=== PATIENT | female | born 1950 | race Caucasian/White ===

== ENCOUNTER 2017-05-18 14:54 | Emergency (ER) | payer OTHER ==
[~2017-05-18] VITALS: Ht 152.4 cm; Wt 80.7 kg
[2017-05-18] MEDS ORDERED: ASPIRIN81 M2 PO (15:57)
[2017-05-18] MEDS ORDERED: LIPITOR80 MG PO (15:58)
[2017-05-18] MEDS ORDERED: LIORESAL 10 MG10 MG PO (15:58)
[2017-05-18] MEDS ORDERED: LASIX 40 MG TAB40 M2 PO (15:59)
[2017-05-18] MEDS ORDERED: SYMBICORT160 MCG/4. INH (15:59)
[2017-05-18] MEDS ORDERED: DICLOFENAC SODI75 MG PO (15:59)
[2017-05-18] MEDS ORDERED: AMARYL4 MG PO (16:00)
[2017-05-18] MEDS ORDERED: SYNTHROID125 MCG PO (16:00)
[2017-05-18] MEDS ORDERED: NEURONTIN600 MG PO (16:00)
[2017-05-18] MEDS ORDERED: METFORMIN HCL500 MG PO (16:01)
[2017-05-18] MEDS ORDERED: LISINOPRIL20 MG PO (16:01)
[2017-05-18] MEDS ORDERED: LOPRESSOR25 PO (16:01)
[2017-05-18 16:48] LABS: URINE BILIRUBIN NEGATIVE (Negative); URINE BLOOD NEGATIVE (Negative); URINE COLOR YELLOW; URINE GLUCOSE-RANDOM* NEGATIVE (Negative); URINE KETONES NEGATIVE (Negative); URINE PROTEIN (DIPSTICK) NEGATIVE (Negative); URINE UROBILINOGEN 0.2 E.U./dl (0.2-1.0)
[2017-05-18 16:49] LABS: URINE LEUKOCYTES-REFLEX 1+ (Negative)
[2017-05-18 16:51] LABS: CASTS None Seen /LPF (None Seen); CRYSTALS None Seen /LPF (None Seen); SQUAMOUS 0-3 Few /LPF (0-3); URINE RBC None Seen /HPF (0-2); URINE WBC-REFLEX 0-5 Rare /HPF (0-5)
[2017-05-18 16:52] LABS: YEAST-REFLEX Present (None Seen)
[2017-05-18 17:11] LABS: ABSOLUTE NEUTROPHILS 6.8 thou/uL (1.4-8.2); HEMATOCRIT 42.3 % (37.0-47.0); HEMOGLOBIN 13.9 gm/dL (12.0-15.0); LYMPHOCYTES 24.5 % (24.0-44.0); MCH 33.6 pg (26.0-34.0); MCHC 32.8 g/dL (28.0-37.0); MCV 102.5 fL (80.0-100.0); MONOCYTES 11.8 % (1.0-8.0); PLATELET COUNT 186 thou/uL (150-400); POLYS 59.7 % (36.0-66.0); RBC 4.13 mil/uL (4.20-5.00); RDW 13.8 % (10.5-14.5); WBC 11.4 thou/uL (4.0-11.0)
[2017-05-18 17:12] LABS: MANUAL DIFF NO
[2017-05-18 17:20] LABS: CALCIUM 8.9 mg/dL (8.5-10.1); CREATININE 0.9 mg/dL (0.6-1.0); POTASSIUM 4.1 mmol/L (3.5-5.1)
[2017-05-18] MEDS ORDERED: KEFLEX500 M1 PO (18:33)
[2017-05-18] MEDS ORDERED: NORCO 5-325 TA1 EACH PO (18:33)
[2017-05-18 19:45] VITALS: BP 123/45
== END 2017-05-18 19:46 | disposition home or self-care (01) ==
LOC: ER 14:54
PROVIDERS: Emergency Medicine
DX: N12 Tubulo-interstitial nephritis, not specified as acute or chronic (principal); N28.89 Other specified disorders of kidney and ureter; F17.210 Nicotine dependence, cigarettes, uncomplicated; Z88.8 Allergy status to other drugs, medicaments and biological substances; Z90.49 Acquired absence of other specified parts of digestive tract; Z90.89 Acquired absence of other organs

== ENCOUNTER 2017-06-29 20:44 | Inpatient (IN) | payer OTHER ==
[~2017-06-29] VITALS: Ht 152.4 cm; Wt 85.3 kg
--- NOTE | ~2017-06-29 | HC ---
[facility] [place] [address] CONSULTATION Name: CALVINSILVANO B Room #: 352-P [facility]..#: [id number] Admission: 06/29/17 Attend Phys: Hector Camacho MD Discharge: 07/01/17 Date of : 46 Report #: [id number] THIS REPORT FOR: //name// CC: Hector Resendez DATE OF SERVICE: 06/30/2017 PRIMARY CARE PHYSICIAN: Dr. Gavin Resendez. REFERRING PHYSICIAN: Dr. Garcia. REASON FOR REFERRAL: Hypoxia. HISTORY OF PRESENT ILLNESS: The patient is a 67-year-old white female who presents to the Emergency Room with flank pain. She was found to be hypoxic. A Pulmonary consultation was requested. About a month ago, patient was found to have T9 vertebral compression fracture. This occurred while she was doing some work. On 06/27/2017, patient underwent kyphoplasty at [facility]. The patient was subsequently discharged home. Following that day, she was found to be incoherent, confused. She was brought to [facility]. There, she was unable to cooperate obtaining a CT head, x-rays. For that reason, she was transported to [facility]. Daughter is present. She states that her mother remains incoherent, restless, somewhat agitated. She is not complaining of mid thoracic pain starting yesterday. The patient underwent CT chest angiogram yesterday, which was negative for pulmonary embolus. There is suggestion of mild ground glass opacity. No infiltrates were seen. An arterial blood gas performed on admission shows hypercapnia. The daughter notes that patient was not able to take deep breaths more recently due to pain. She denies any history of chronic lung disease. At present, she is somewhat restless, resting. PAST MEDICAL HISTORY: Remarkable for T9 compression fracture as mentioned above, undergoing kyphoplasty; coronary artery disease, status post coronary bypass surgery in 2000; myocardial infarction in 1997; multiple PTCAs in the past with stent placement; hypertension; diabetes mellitus; hyperlipidemia. The patient's daughter denies any history of chronic lung disease, though history [facility] [address] [place] [address] CONSULTATION Name: SILVANO SIMPSON Fco Room #: 352-P [facility] IN ..#: [id number] Admission: 06/29/17 Attend Phys: Hector Camacho MD Discharge: 07/01/17 Date of : 48 Report #: [id number] suggests COPD with 3 liters of O2 at home. PAST SURGICAL HISTORY: Include appendectomy; prior right leg trauma with fracture, undergoing surgery; tonsillectomy and adenoidectomy. ALLERGIES: LASIX, NICKEL, REACTIONS NOT SPECIFIED. HOME MEDICATIONS: Include aspirin, Lipitor, baclofen, Symbicort, Voltaren, Lasix, Neurontin, Amaryl, Synthroid, Zestril, Glucophage, Lopressor. FAMILY HISTORY: Noncontributory. SOCIAL HISTORY: The patient is a lifetime nonsmoker. She denies any alcohol use. REVIEW OF SYSTEMS: As mentioned above. Otherwise, 10-point system review negative. PHYSICAL EXAMINATION: GENERAL: She is awake, alert, moderately distressed, somewhat incoherent. VITAL SIGNS: Temperature is 98 degrees Fahrenheit, pulse is 82, respiratory rate is 22, blood pressure is 122/76 mmHg. It was up to 200/65 mmHg systolic, saturation is 96%. HEENT: Normocephalic, atraumatic. NECK: Supple, without lymphadenopathy or thyromegaly. CHEST: Breath sounds are decreased bilaterally due to poor effort. No obvious wheezes or rales. CARDIOVASCULAR: Normal S1, S2. There are no murmurs or gallop. There is no JVD. There is no carotid bruit. Pulses are 2+/4+ bilaterally. ABDOMEN: Soft, nontender. No organomegaly or masses felt. GENITOURINARY: Deferred. RECTAL: Deferred. EXTREMITIES: There is no edema, cyanosis or clubbing. LABORATORY DATA: CT head was negative. CT chest angiogram shows no evidence of pulmonary embolus, suggestion of mild ground-glass opacity, pulmonary arteries are felt to be enlarged. Troponin is normal. Electrolytes are normal. Liver function test is normal. Arterial blood gas revealed pH 7.36, pCO2 53, pO2 69 on 4 liters of O2. WBC is 7200, hemoglobin is 14.6, platelets are normal. IMPRESSION: 1. Acute on chronic hypoxic-hypercapnic respiratory failure in this 67-year-old white female. Although, she has never smoked, she is felt to have chronic obstructive pulmonary disease. She reports a history of oxygen use at home. History also suggests patient has been not able to take deep breaths due to lower chest wall pain. [facility] [address] [place] [address] CONSULTATION Name: SILVANO SIMPSON Room #: [address] [place] [address] IN M.R.#: [id number] Admission: 12/23/17 Attend Phys: Hector Camacho MD Discharge: 07/01/17 Date of : 48 Report #: [id number] Suspect a degree of hypoventilation and presumed chronic obstructive pulmonary disease as a cause for hypoxia and hypercarbia. 2. Recent T9 vertebral compression fracture, status post kyphoplasty. Chest pain is likely related to the injury and procedure without evidence of pulmonary embolus by CT chest angiogram. 3. Encephalopathy, likely due to narcotics. 4. Diabetes mellitus type 2. 5. Hypertension. 6. Coronary artery disease with past myocardial infarction, coronary artery bypass surgery. RECOMMENDATION: We will try to keep saturation around 90% to avoid paradoxical hypercarbia. Continue bronchodilators for now. Try to minimize narcotics as possible. Overall, the patient is relatively stable from pulmonary standpoint. Findings were discussed with the family. Thank you for this consultation. <ELECTRONICALLY SIGNED> By: Tobias Leiva MD 07/01/17 1600 1337 0013 Tobias Leiva MD /nt
--- NOTE | ~2017-06-29 | EEG ---
[facility] [place] [address] ELECTROENCEPHALOGRAM Name: SILVANO SIMPSON Fco Room #: 352-P [facility] IN M.R.#: [id number] Admission: 06/29/17 Attend Phys: Hector aCmacho MD Discharge: 07/01/17 Date of : 48 Report #: [id number] THIS REPORT FOR: //name// CC: Hector Resendez DATE OF SERVICE: 06/30/2017 This patient is being evaluated for altered mental status. EEG was attempted by placing the electrode by 10:20 electrode system placement. Both referential and sequential montages were used for recording. The patient did not cooperate at all. The patient continued to move and there is all kind of artifact, which is present in this patient's EEG. Background activity does appear to be about 9 Hz and 10 microvolt. A lot of artifact is present and it is not possible to tell whether there is some sharper or seizure activity present. Photic stimulation was unremarkable. IMPRESSION: No definite impression can be made on this EEG because the patient continued to move and there is all kind of artifact making it impossible to tell whether any seizure activity is present or not. However, because of the patient's agitation, I am going to give her a few dosages of Depakote to see if that can calm down her agitation and any seizure activity, which may or may not have been present. This patient will not cooperate with any other testing like MRI and I have tried to see her twice. I have discussed this patient with Dr. Henriquez, the admitting physician since my dictating the consult. He is going to start her on some vitamin therapy also and the management is going to be difficult because of her underlying respiratory problem and I will defer to them. Since I cannot exclude the possibility of seizures, I will go ahead and give her Depakote, which may help her agitation also and is unlikely to suppress her respiration. I have also talked to the family a couple of times and spent more than 35 minutes of time taking care of this patient today and majority of that time has been spent counseling the family and coordinating her care. <ELECTRONICALLY SIGNED> By: Brady Greene MD 07/03/17 0944 1620 1653 Brady Greene MD /nt
--- NOTE | ~2017-06-29 | EKG ---
[address] [place] [address] ELECTROCARDIOGRAM REPORT Name: SILVANO SIMPSON Room #: 352- ADM IN M.R.#: [id number] Admission: 06/29/17 Attend Phys: Hector Camacho MD Discharge: Date of : 48 Report #: [id number] THIS REPORT FOR: //name// [facility] Test Date: 2017-06-30 Test Time: 00:03:02 Pat Name: SILVANO SIMPSON Department: Room: [facility] Gender: F Caustic Loader: unknown : 1950 Requested By: Anita Del Cid Order Number: [id number] MD: Adi Aranda Measurements Intervals [place] Rate: 87 P: -17 [place]: 183 QRS: -3 QRSD: 90 T: -9 QT: 369 QTc: 444 Interpretive Statements Sinus rhythm Probable left atrial enlargement Low voltage, extremity leads Probable left ventricular hypertrophy Poor R-wave progression Compared to ECG 02/08/2009 14:22:40 Low QRS voltage now present Left ventricular hypertrophy now present Q waves now present Myocardial infarct finding no longer present Electronically Signed On 06-30-2017 9:49:23 PLANNER/SCHEDULER by Adi Aranda [email or web address] <ELECTRONICALLY SIGNED> By: Adi Aranda MD 06/30/17 0949 0003 0003 Adi Aranda MD /EPI
--- NOTE | ~2017-06-29 | HC ---
[facility] [place] [address] CONSULTATION Name: SILVANO SIMPSON Fco Room #: 352-P [facility] IN ..#: [id number] Admission: 06/29/17 Attend Phys: Hector Camacho MD Discharge: 07/01/17 Date of : 48 Report #: [id number] THIS REPORT FOR: //name// CC: Hector Resendez DATE OF SERVICE: 06/30/2017 HISTORY OF PRESENT ILLNESS: This is a 67-year-old female patient whose consultation was requested to evaluate the patient for any neurological etiology for altered mental status. I made 2 attempts to take a history from the patient or examine this patient. Both attempts were unsuccessful. The patient will keep saying that "go away." When pressed, she is complaining of pain in the chest area. She had a recent kyphoplasty. She will not cooperate at all for the history taking or for examination even after multiple requests. I discussed with the patient and the family that I cannot make any impression or give any suggestion, but this patient continued to be uncooperative and will not give any history. REVIEW OF SYSTEMS: Indicate that this patient has a history of COPD, hypertension, diabetes, coronary artery disease and now is mainly complaining of pain in the lower chest and upper abdominal area. She is not complaining of headache. It is not possible to tell about altered mental status because she will not cooperate. Initially, she will not lie down and when she laid down, she will not do anything as far as examination is concerned and will not cooperate in spite of telling her how important it is to cooperate, both by me and the family. LABORATORY DATA: I reviewed her lab, her white count is 7.2 and her sodium is 143. She does appear to have some macrocytosis and her vitamin B12 is normal. IMPRESSION: I do not believe there is any neurological etiology going on in this patient, but I cannot be certain because the patient will not cooperate. Her symptoms appeared to be in chest and abdomen area and I will suggest working up that to see what the etiology is. Her spine also needs to be addressed and I told her that no spine physician comes here and we do not do any spine. I will get an EEG done if she cooperates, but she does not cooperate at all and I will make another attempt to examine her tomorrow. I did ask the nurses to contact you if she wants to consult Psychiatry to calm her down and see if more testing can be done in this patient. In the absence of any history, it is not possible to give any further suggestion in this patient. This patient is on gabapentin, so I suspect she has chronic pain and she also has kyphoplasty, but in spite of multiple requests to the patient to cooperate, she did not. I have put a call to Dr. Henriquez and I will discuss and convey that to him. I will suggest working up the abdomen, chest, spine and other systemic problems at this stage and if she becomes cooperative, we can do more neurological workup including [facility] [address] [place] [address] CONSULTATION Name: SILVANO SIMPSON Fco Room #: 352-P [facility] IN M.R.#: [id number] Admission: 06/29/17 Attend Phys: Hector Camacho MD Discharge: 07/01/17 Date of : 48 Report #: [id number] MRI, but presently her symptom appeared to be non-neurological. Thank you very much for this referral and if you have any question, please feel free to contact me. <ELECTRONICALLY SIGNED> By: Brady Greene MD 07/03/17 0943 1536 2144 Brady Greene MD /nt
[~2017-06-29 20:44] MED LIST: AMARYL4 MG PO; ASPIRIN81 M2 PO; DICLOFENAC SODI75 MG PO; KEFLEX500 M1 PO; LASIX 40 MG TAB40 M2 PO; LIORESAL 10 MG10 MG PO; LIPITOR80 MG PO; LISINOPRIL20 MG PO; LOPRESSOR25 PO; METFORMIN HCL500 MG PO; NEURONTIN600 MG PO; NORCO 5-325 TA1 EACH PO; SYMBICORT160 MCG/4. INH; SYNTHROID125 MCG PO
[2017-06-29 22:10] VITALS: BP 165/63
[2017-06-30 00:20] LABS: ABG SAMPLE TYPE ARTERIAL; BE(vivo) 3.6 mmol/L (-2 to +3); HCO3 30.3 mmol/L (22.0-26.0); LACTATE 0.93 mmol/L (0.5-2.0); O2(CT) 19.1 mL/dL (15.0-23.0); O2Hb 88.7 % (92.0-98.0); PCO2 53.9 mmHg (35.0-45.0); PO2 69.3 mmHg (80.0-100.0); pH 7.368 (7.360-7.450); sO2 93.1 % (92.0-98.0)
[2017-06-30 00:21] LABS: STICK SITE L.RADIAL
[2017-06-30 03:47] VITALS: BP 144/53
[2017-06-30 03:55] VITALS: BP 132/87
[2017-06-30 05:00] LABS: HEMATOCRIT 43.6 % (37.0-47.0); HEMOGLOBIN 14.6 gm/dL (12.0-15.0); MCH 34.5 pg (26.0-34.0); MCHC 33.5 g/dL (28.0-37.0); MCV 102.8 fL (80.0-100.0); RBC 4.24 mil/uL (4.20-5.00); RDW 15.4 % (10.5-14.5); WBC 7.2 thou/uL (4.0-11.0)
[2017-06-30 05:19] LABS: CALCIUM 8.9 mg/dL (8.5-10.1); CREATININE 0.6 mg/dL (0.6-1.0); POTASSIUM 4.1 mmol/L (3.5-5.1); TOTAL BILIRUBIN 0.6 mg/dL (<0.1-1.0); TOTAL PROTEIN 6.5 g/dL (6.4-8.2)
[2017-06-30 07:40] VITALS: BP 202/70
[2017-06-30 10:00] VITALS: BP 122/76
[2017-06-30 11:32] LABS: TSH 3.979 uIU/mL (0.358-3.740)
[2017-06-30 16:51] VITALS: BP 181/72
[2017-06-30 20:13] VITALS: BP 134/58
[2017-07-01 00:32] LABS: URINE BILIRUBIN NEGATIVE (Negative); URINE BLOOD NEGATIVE (Negative); URINE COLOR YELLOW; URINE GLUCOSE-RANDOM* NEGATIVE (Negative); URINE KETONES 1+ (Negative); URINE NITRITE NEGATIVE (Negative); URINE PROTEIN (DIPSTICK) NEGATIVE (Negative); URINE SPECIFIC GRAVITY <= 1.005 (1.005-1.035); URINE UROBILINOGEN 0.2 E.U./dl (0.2-1.0)
[2017-07-01 03:17] VITALS: BP 156/67
[2017-07-01 04:23] LABS: HEMATOCRIT 43.1 % (37.0-47.0); HEMOGLOBIN 14.4 gm/dL (12.0-15.0); MCH 34.4 pg (26.0-34.0); MCHC 33.5 g/dL (28.0-37.0); MCV 102.8 fL (80.0-100.0); RBC 4.19 mil/uL (4.20-5.00); RDW 15.2 % (10.5-14.5); WBC 7.2 thou/uL (4.0-11.0)
[2017-07-01 04:36] LABS: ALBUMIN 2.8 g/dL (3.4-5.0); CALCIUM 9.1 mg/dL (8.5-10.1); CREATININE 0.7 mg/dL (0.6-1.0); POTASSIUM 3.9 mmol/L (3.5-5.1); TOTAL BILIRUBIN 0.6 mg/dL (<0.1-1.0); TOTAL PROTEIN 6.2 g/dL (6.4-8.2)
[2017-07-01 04:56] LABS: MAGNESIUM 1.7 mg/dL (1.8-2.4); PHOSPHORUS 4.2 mg/dL (2.5-4.9)
[2017-07-01] MEDS ORDERED: PREDNISONE 20 M20 MG PO (11:40)
[2017-07-01 13:34] VITALS: BP 156/67
== END 2017-07-01 14:17 | disposition home or self-care (01) | DRG 189 ==
LOC: 3W 20:44
PROVIDERS: Hospitalist; Nurse Practitioner Family; Psychiatry & Neurology Neuromuscular Medicine
DX: J96.22 Acute and chronic respiratory failure with hypercapnia (principal); G93.40 Encephalopathy, unspecified; S32.009A Unspecified fracture of unspecified lumbar vertebra, initial encounter for closed fracture; F11.20 Opioid dependence, uncomplicated; I25.10 Atherosclerotic heart disease of native coronary artery without angina pectoris; E78.5 Hyperlipidemia, unspecified; J44.9 Chronic obstructive pulmonary disease, unspecified; I10 Essential (primary) hypertension; F17.210 Nicotine dependence, cigarettes, uncomplicated; E11.649 Type 2 diabetes mellitus with hypoglycemia without coma; G89.29 Other chronic pain; M54.9 Dorsalgia, unspecified; E11.65 Type 2 diabetes mellitus with hyperglycemia; T38.0X5A Adverse effect of glucocorticoids and synthetic analogues, initial encounter; Z79.4 Long term (current) use of insulin; Z79.899 Other long term (current) drug therapy; Z79.82 Long term (current) use of aspirin; Z95.5 Presence of coronary angioplasty implant and graft; Z95.1 Presence of aortocoronary bypass graft; I25.2 Old myocardial infarction; Z88.8 Allergy status to other drugs, medicaments and biological substances; Z90.49 Acquired absence of other specified parts of digestive tract; Z82.49 Family history of ischemic heart disease and other diseases of the circulatory system; Z99.81 Dependence on supplemental oxygen; X58.XXXA Exposure to other specified factors, initial encounter; Y93.89 Activity, other specified; Y92.89 Other specified places as the place of occurrence of the external cause; Y99.8 Other external cause status
CPT/HCPCS: 10779; 10879

== ENCOUNTER 2018-06-19 09:36 | Inpatient (IN) | payer OTHER ==
[2018-06-19] VITALS (55 sets, daily range): BP systolic 63–178; BP diastolic 22–102
[~2018-06-19] VITALS: Ht 160 cm; Wt 78.0 kg
--- NOTE | ~2018-06-19 | HC ---
[facility] [place] [address] CONSULTATION Name: SILVANO SIMPSON Room #: 242-P ADM IN M.R.#: [id number] Admission: 06/19/18 Attend Phys: Heri Villalba MD Discharge: Date of : 48 Report #: [id number] THIS REPORT FOR: //name// CC: Raphael Villalba DATE OF SERVICE: 06/19/2018 HISTORY OF PRESENT ILLNESS: The patient is a 68-year-old female who is well known to myself. She comes to the Emergency Room here from [facility] where she presented with some mental status changes. Apparently, had a recent hospitalization at [facility]. We do not have those records, but this is something to do with the clot in the heart and subsequently was sent home after a week, was intubated for 4-5 days and then sent home last week. Somewhat failure to thrive here, although she is alert, but hypotensive on Levophed drip. Troponin is negative. She does have extensive cardiac history. I have taken care of her for at least 20 years. She has a history of bypass remotely around the year 1999 and subsequently cardiac catheterization in 01/2017, FERNÁNDEZ to an LAD, which was intact. Diffuse disease in the LAD, a dominant right, which was widely patent and a 50% mid circumflex lesion. That was 01/2017, so year and a half ago. There was a prior stent in the right that is widely patent. She did have moderate elevation in pulmonary pressures in the 70 range at that time. She has had preserved LV function. I am not aware of what this clot that she is describing possibly a left ventricular clot, but not in the setting of an infarct. I do not have the records. MEDICATIONS: It looks like she had been on aspirin, Lipitor 80, Baclofen, Symbicort, Voltaren, Lasix 40, gabapentin, levothyroxine, lisinopril 20, metformin and metoprolol 25 b.i.d. Some scripts are prednisone, [place] and Keflex. PAST MEDICAL HISTORY: Positive for coronary artery disease with bypass 2000, initial infarct in 1997, four stents prior, one to the dominant right with a catheterization in 01/2017, no intervention; hypertension; hypercholesterolemia; diabetes; prior obesity, which has improved; right leg surgery with metal plate; appendectomy; COPD; tonsil and adenoidectomy; kyphoplasty. SOCIAL HISTORY: She is , former tobacco user, no alcohol use. ALLERGIES: LEVAQUIN, LATEX, NICKEL, SULFA, TAPE. FAMILY HISTORY: Both mother and father had premature coronary artery disease. Brother from cancer. REVIEW OF SYSTEMS: Negative except for what has happened at [facility] and then, [facility] [address] [place] [address] CONSULTATION Name: SILVANO SIMPSON Room #: 242-P ADM IN M.R.#: [id number] Admission: 06/19/18 Attend Phys: Heri Villalba MD Discharge: Date of : 48 Report #: [id number] a 25-pound weight loss over the last few months. LABORATORY DATA: Potassium 4.6, creatinine 2.5. Liver function tests relatively normal. Troponin negative. BNP 684. No CPK. H and H 11 and 33, white count 9.4, platelets 211. She has been sent for CT of chest, abdomen and pelvis that is completed, but not signed. Echo has not yet been performed. PHYSICAL EXAMINATION: VITAL SIGNS: Pulse is 50, blood pressure 94/50. GENERAL: She is awake and alert. HEENT: Eyes reveal xanthelasmas. Pharynx is clear. NECK: Shows preserved upstrokes without JVD. LUNGS: Prolonged expiratory phase. CARDIOVASCULAR: Distant heart tones, S1, S2. ABDOMEN: Soft. EXTREMITIES: Reveal trace of edema. NEUROLOGIC: She is nonfocal at this time. SKIN: Warm and dry, no ulcer formation. ASSESSMENT: 1. Hypotension. 2. Coronary artery disease with history of bypass and catheterization 2017. 3. Recent hospitalizations with a question of a clot, clot in left ventricle need to confirm. 4. Hypertension. 5. Hypercholesterolemia. 6. Chronic obstructive pulmonary disease. 7. Diabetes. 8. Degenerative joint disease. 9. Chronic kidney disease. RECOMMENDATIONS AND PLAN: We will continue with Levophed. We will obtain echo Doppler. Central line being placed. Does not appear to be an acute cardiac event. I need to review the records from [facility]. I am not sure what this clot formation or where this clot formation is. I did discuss the above with Dr. Villalba. We will follow with you pressor support currently, echo and review the CT of the chest, abdomen and pelvis. There is some question that she was placed recently on an anti-seizure medicine, Keppra. I will need to confirm. Thank you for asking me to assist in the care of this patient. By: 1428 1626 Mehran Sarkar MD, FACC /nt
--- NOTE | ~2018-06-19 | HC ---
[facility] [address] [place] [address] CONSULTATION Name: SILVANO SIMPSON Room #: 242-P ADM IN M.R.#: [id number] Admission: 06/19/18 Attend Phys: Heri Villalba MD Discharge: Date of : 48 Report #: [id number] THIS REPORT FOR: //name// CC: Raphael Villalba DATE OF SERVICE: 06/19/2018 HISTORY OF PRESENT ILLNESS: The patient is a 68-year-old female, well known to myself. DICTATION ENDS HERE. By: 1417 1605 Mehran Sarkar MD, FACC /nt
--- NOTE | ~2018-06-19 | EKG ---
[address] [place] [address] ELECTROCARDIOGRAM REPORT Name: CALVINSILVANO Fco Room #: 242- ADM IN M.R.#: [id number] Admission: 06/19/18 Attend Phys: Heri Villalba MD Discharge: Date of : 46 Report #: [id number] THIS REPORT FOR: //name// [facility] Test Date: 2018-06-19 Test Time: 19:29:09 Pat Name: SILVANO SIMPSON Department: Room: 242 Gender: F Anesthesiologist/Physician: Miguel Ángel FLORES : 1950 Requested By: Heri Villalba Order Number: [id number] MD: Adi Aranda Measurements Intervals [place] Rate: 45 P: 55 [place]: 191 QRS: 31 QRSD: 98 T: 69 QT: 474 QTc: 411 Interpretive Statements Sinus bradycardia Poor R-wave progression Nonspecific ST segment abnormalities Compared to ECG 06/30/2017 00:03:02 Sinus rhythm no longer present Electronically Signed On 06-20-2018 9:15:52 DIVISION MERCHANDISE MANAGER by Adi Aranda [email or web address] <ELECTRONICALLY SIGNED> By: Adi Aranda MD 06/20/18914 1929 28 Adi Aranda MD /EPI
--- NOTE | ~2018-06-19 | HC ---
[facility] [place] [address] CONSULTATION Name: SILVANO SIMPSON Room #: 237-P [facility] IN M.R.#: [id number] Admission: 06/19/18 Attend Phys: Heri Villalba MD Discharge: Date of : 48 Report #: [id number] THIS REPORT FOR: //name// CC: Raphael Villalba REASON FOR CONSULTATION: Acute kidney injury. REASON FOR PRESENTATION: Sent from [facility] with hypotension. HISTORY OF PRESENT ILLNESS: A 68-year-old with past medical history of coronary artery disease and hypertension. She presented to [facility] not feeling well for a few days. She was hypotensive and had some mental status issues. She lives with her . She tells me that she was hospitalized at [facility] for few days requiring intubation. She was told that she has a clot in her heart. Details of this are not available at this point. Her took her to [facility], where she was found to be in extreme hypotension with initial blood pressure reading of 60/40. She was bolused with IV fluids and was brought to the Emergency Room and was admitted to the ICU. On presentation to our hospital, she was found to have a creatinine of 2.5. Prior to this and back in 2017, she had a normal kidney function. She did report decreased oral intake. No reported fever or chills. No urinary symptoms. She denied any changes in her medications. She is maintained on lisinopril, metformin and gabapentin as an outpatient. She is known to have long-standing diabetes mellitus, hypertension, status post CABG as delineated above. PAST MEDICAL HISTORY: 1. Coronary artery disease, status post CABG. 2. Hypertension. 3. Diabetes mellitus. 4. COPD. 5. Appendectomy. 6. Adenoidectomy. 7. Hyperlipidemia. 8. Recent hospitalizations at [facility], with no details. SOCIAL HISTORY: . No drug or alcohol abuse. Her is actually a transplant patient. ALLERGIES: LEVAQUIN, LATEX, SULFA AND NICKEL. FAMILY HISTORY: Significant for coronary artery disease and cancer. REVIEW OF SYSTEMS: GENERAL: Significant for weight loss. CARDIOVASCULAR: No chest pain or palpitation. [facility] [address] [place] [address] CONSULTATION Name: SILVANO SIMPSON Fco Room #: 237-P [facility] IN ..#: [id number] Admission: 06/19/18 Attend Phys: Heri Villalba MD Discharge: Date of : 48 Report #: [id number] PULMONARY: No cough or hemoptysis. GASTROINTESTINAL: No weight loss. GENITOURINARY: No frequency, no urgency. SKIN: No rash or ulcerations. PHYSICAL EXAMINATION: VITAL SIGNS: Pulse rate on presentation was 56. She did have bradycardia with a pulse rate of 48. HEAD AND NECK: No jugular venous distention. CHEST: Decreased air entry bilaterally. CARDIOVASCULAR: Regular, with no rub detected. ABDOMEN: Soft, nontender. LOWER EXTREMITIES: No edema with intact peripheral pulses. LABORATORY DATA: Laboratory values reviewed. Creatinine was 2.5, sodium was 134 and BUN was 45. Magnesium was 1.7. Albumin was 2.8. U/A was negative for nitrate with some white blood cell clumps. IMAGING: CT chest, abdomen and pelvis reviewed. Renal ultrasound with no acute abnormality. Chest with no acute abnormality; however, the wires are completely bulking. ASSESSMENT, IMPRESSION AND PLAN: 1. Acute kidney injury. 2. Hypertension. 3. Remote history of coronary artery bypass graft with wires completely bulking on the chest x-ray. 4. Hypotension of unknown source. 5. From the renal perspective, she did have a distended bladder and Nance catheter was placed with very significant urine output. 6. Hypotension is being investigated with appropriate laboratory workup. 7. Bolus with IV fluid. 8. Cultures obtained. 9. Continue with hemodynamic support. 10. Expect her kidney function to fully normalize. 11. Need her [facility] records. 12. Defer the management of the broken sternal wire per the primary team. <ELECTRONICALLY SIGNED> By: Ayden Henriquez MD 06/23/18 0635 2124 0112 Ayden Henriquez MD /nt
--- NOTE | ~2018-06-19 | 2DMMODE ---
[address] [address] 2 D/M-MODE ECHOCARDIOGRAM Name: SIMPSONSILVANO B Room #: 237-P ADM IN M.R.#: [id number] Admission: 06/19/18 Attend Phys: Heri Villalba, Discharge: Date of : 46 Date of Service: 06/23/18 0957 Report #: [id number] THIS REPORT FOR: //name// APPROVED REPORT Study performed: 06/23/2018 08:20:16 EXAM: Limited 2D and color flow Echocardiogram Patient Location: ICU Room #: [facility] Status: routine BSA: 1.80 HR: 77 bpm BP: 123/40 mmHg Other Information Study Quality: Adequate Indications COPD Diabetes CAD Hypertension/HDD Abbreviated echo to rule out apical thrombus, complete echo 06/19/18 Echo Enhancing Agent Indication: Rule out apical thrombus Agent(s) / Amount(s) Used: Optison 3 cc Left Ventricle The left ventricular systolic function is normal. The left ventricular ejection fraction is within the normal range. LVEF is 60-65%. Right Ventricle The right ventricular systolic function is normal. Aortic Valve The Aortic valve is mildly sclerotic. Mild aortic regurgitation. Mitral Valve The mitral valve is normal in structure. Trace mitral regurgitation. [address] [address] 2 D/M-MODE ECHOCARDIOGRAM Name: SILVANO SIMPSON Room #: 237-P ADM IN M.R.#: [id number] Admission: 06/19/18 Attend Phys: Heri Villalba, Discharge: Date of : 46 Date of Service: 06/23/18956 Report #: [id number] Tricuspid Valve The tricuspid valve is normal in structure. Trace tricuspid regurgitation. Pericardium There is no pericardial effusion. <Conclusion> The left ventricular systolic function is normal. LVEF is 60-65%. No evidence of apical thrombus. There is no pericardial effusion. <ELECTRONICALLY SIGNED> By: Raphael Flores MD, FACC 06/23/1857 6 6 Raphael Flores MD, FACC /INF
--- NOTE | ~2018-06-19 | HC ---
[facility] [place] [address] [place] [address] CONSULTATION Name: SILVANO SIMPSON Room #: 237-P ADM IN M.R.#: [id number] Admission: 06/19/18 Attend Phys: Heri Villalba MD Discharge: Date of : 46 Report #: [id number] THIS REPORT FOR: //name// CC: Raphael Villalba DATE OF SERVICE: 06/19/2018 HISTORY OF PRESENT ILLNESS: This is a 68-year-old female patient for whom a consultation was requested for seizure. This patient provides some history. indicated that she had 3 seizures. They all happened in less short period of time, but he does not know exactly when the first one was. The first episode, she was at [facility], [place] was [place] They put her on Keppra, which looks like 1000 mg t.i.d., but they gave her only 9 pills per , took it for 3 days and she has another seizure. She was shaking. She remembers shaking. She was somewhat confused after that. It looks like she is back to her baseline now. REVIEW OF SYSTEM: It looks like multiple physicians are following this patient. I carried out the 14-point review of system. She has renal problems and her creatinine is 2.5. Her magnesium is low at 1.7. Cardiology note was reviewed and it looks like she had hypertension. Her MCV is high, but the says that she has not drunk any alcohol for the last 20 years. Her last B12 was done about a year ago and that was unremarkable. She is sleepy, but she wakes up and she feels back to her baseline. I reviewed her prior records and looks like I had seen this patient. At that time, she did not allow many of the testing to be done. She was admitted at that time with altered mental status. They do not know what workup was done in [facility]. They do not know whether an MRI was done or not. Here MRI was not done, but CT scan of the head was done in [address] scan was done in [facility]. I do not have the report from outside hospital, but one here was okay. This was her relevant 14-point review of system. She is not complaining of any new eye, ENT symptom. She is being seen by Cardiology. She does not appear to have any respiratory distress, GI, symptoms. She has old back pain for which she takes medication. She is not having any constitutional symptoms. There is no dermatological, hematological, psychiatric, throat or allergic symptoms. PAST MEDICAL HISTORY: According to them is positive for seizure, but I do not have any record. FAMILY HISTORY: Negative for seizures. SOCIAL HISTORY: According to the , she does not drink any alcohol at [facility] [address] [place] [address] CONSULTATION Name: SILVANO SIMPSON Room #: 237-P ADM IN M.R.#: [id number] Admission: 06/19/18 Attend Phys: Heri Villalba MD Discharge: Date of : 46 Report #: [id number] all. They do not know the name of the medication she is on. Record indicate that she does have history of hypertension, appendectomy, tonsillectomy, multiple miscarriages and coronary artery disease. She is alert, responsive. She can follow simple commands. She knows the month. She knows what hospital she is in. Cranial nerve examination 2-12 looks unremarkable. Speech looks intact. She moves all 4 extremities. Strength, sensation and reflexes are symmetrical. Tone looks unremarkable. Reflexes do look diminished. There is no meningeal sign. There is no thyroid mass. There is no carotid bruit. She is moderately built individual who does not have any dysmorphic features of eyes, ears and face. Her hearing and vision looks adequate. Cardiac examination is unremarkable. No respiratory difficulty or rhonchi. Pulses are somewhat difficult to feel, temperature is 98.2, respiration is regular. LABORATORY DATA: White count is 9.4, but she does have some increased MCV. Her creatinine is abnormal. IMPRESSION: History of seizure. No prior records available. I will put her back on Keppra. It looks like she was on gabapentin at one time. Because of kidney dysfunction, I will hold that for the time being. RECOMMENDATION: 1. Get record from [facility] as soon as we can. 2. Keppra for the time being. 3. We will see what workup they did and we will do rest of the workup here. All of it was discussed with the patient and the family in detail and they are agreeable with this plan. <ELECTRONICALLY SIGNED> By: Brady Greene MD 06/24/18 1446 [id number] Brady Greene MD /nt
--- NOTE | ~2018-06-19 | EEG ---
[facility] [place] [address] ELECTROENCEPHALOGRAM Name: SILVANO SIMPSON Fco Room #: 237-P [facility] IN M.R.#: [id number] Admission: 06/19/18 Attend Phys: Heri Villalba MD Discharge: Date of : 46 Report #: [id number] THIS REPORT FOR: //name// CC: Raphael Villalba DATE OF SERVICE: 06/19/2018 This patient is being evaluated for the possibility of seizure. EEG was done by placing the electrode by standard 10-20 system of electrode placement. Both referential and sequential montages were used for recording. Background activity in this patient's EEG is about 10 Hz and 30 microvolt. It is a symmetrical activity. Photic stimulation was unremarkable. Throughout the record, no active epileptiform activity was noticed. IMPRESSION: This patient's EEG is unremarkable and did not show any active epileptiform activity. <ELECTRONICALLY SIGNED> By: Brady Greene MD 06/24/18 1447 [id number] Brady Greene MD /nt
--- NOTE | ~2018-06-19 | 2DMMODE ---
[facility] [address] [place] [address] 2 D/M-MODE ECHOCARDIOGRAM Name: SILVANO SIMPSON Room #: 242-P [facility] IN ..#: [id number] Admission: 06/19/18 Attend Phys: Heri Villalba, Discharge: Date of : 46 Date of Service: 06/19/18 1659 Report #: [id number] THIS REPORT FOR: //name// APPROVED REPORT Study performed: 06/19/2018 14:32:54 EXAM: Comprehensive 2D, Doppler, and color-flow Echocardiogram Patient Location: ICU Room #: 242 Status: routine BSA: 1.78 HR: 49 bpm BP: 91/ mmHg Rhythm: NSR Other Information Study Quality: Adequate Indications Hypotension Hx. [place], CABG, stents, HTN, COPD 2D Dimensions RVDd: 34.39 mm IVSd: 11.63 (7-11mm) LVOT Diam: 20.49 (18-24mm) LVDd: 48.37 mm PWd: 11.92 (7-11mm) Ascending Ao: 26.45 (22-36mm) LVDs: 33.95 (25-40mm) Aortic Root: 30.86 mm IVC: 19.00 mm Volumes Left Atrial Volume (Systole) Single Plane 4CH: 65.72 mL Single Plane 2CH: 62.99 mL LA ESV Index: 38.96 mL/m2 Aortic Valve AoV Peak Gabriel.: 2.05 m/s AO Peak Gr.: 16.76 mmHg LVOT Max P.89 mmHg LVOT Max V: 1.49 m/s RANOLDO Vmax: 2.40 cm2 AI Vmax: 3.39 m/s AI [place]: 1.02 m/s2 AI PHT: 965.47 ms [facility] [address] [place] [address] 2 D/M-MODE ECHOCARDIOGRAM Name: SILVANO SIMPSON Room #: 242-[facility] IN ..#: [id number] Admission: 06/19/18 Attend Phys: Heri Villalba, Discharge: Date of : 46 Date of Service: 06/19/18 1659 Report #: [id number] Mitral Valve E/A Ratio: 0.8 MV Decel. Time: 305.72 ms MV E Max Gabriel.: 0.72 m/s MV A Gabriel.: 0.96 m/s MV PHT: 88.66 ms IVRT: 119.95 ms Pulmonary Valve PV Peak Gabriel.: 1.34 m/s PV Peak Gr.: 7.17 mmHg Pulmonary Vein P Vein S: 0.57 m/s P Vein D: 0.39 m/s P Vein S/D Ratio: 1.46 Tricuspid Valve RAP Estimate: 5.00 mmHg Left Ventricle The left ventricle is normal size. Mild concentric left ventricular hypertrophy. The left ventricular systolic function is normal. Mild apical hypokinesis LVEF is 60-65%. Mild diastolic dysfunction is present (impaired relaxation pattern). Right Ventricle Right ventricle is mildly dilated. The right ventricular systolic function is normal. Atria Left atrium is dilated. Right atrium is dilated. Aortic Valve The aortic valve is minimally sclerotic. Mild aortic regurgitation. There is no aortic valvular stenosis. Mitral Valve The mitral valve is normal in structure. Trace mitral regurgitation. No evidence of mitral valve stenosis. Tricuspid Valve The tricuspid valve is normal in structure. Trace tricuspid regurgitation. Unable to assess PA pressure. Pulmonic Valve Pulmonic valve is not well visualized. Mild pulmonic [facility] [address] [place] [address] 2 D/M-MODE ECHOCARDIOGRAM Name: SILVANO SIMPSON Fco Room #: 242-P [facility] IN ..#: [id number] Admission: 06/19/18 Attend Phys: Heri Villalba, Discharge: Date of : 46 Date of Service: 06/19/18 1659 Report #: [id number] regurgitation. Great Vessels The aortic root is normal in size. IVC is normal in size and collapses >50% with inspiration. Pericardium There is no pericardial effusion. <Conclusion> The left ventricular systolic function is normal. Mild apical hypokinesis LVEF is 60-65%. Mild diastolic dysfunction Both atria are mildly dilated. The aortic valve is minimally sclerotic. Mild aortic regurgitation, no stenosis. The mitral valve is normal in structure. Trace mitral regurgitation. There is no pericardial effusion. <ELECTRONICALLY SIGNED> By: Raphael Flores MD, [facility] 06/19/181658 58 58 Raphael Flores MD, FAC /INF
[~2018-06-19 09:36] MED LIST changes: +PREDNISONE 20 M20 MG PO
[2018-06-19 11:43] LABS: HEMATOCRIT 33.7 % (37.0-47.0); HEMOGLOBIN 11.2 gm/dL (12.0-15.0); MCH 35.5 pg (26.0-34.0); MCHC 33.2 g/dL (28.0-37.0); MCV 106.9 fL (80.0-100.0); RBC 3.15 mil/uL (4.20-5.00); WBC 9.4 thou/uL (4.0-11.0)
[2018-06-19 11:51] LABS: ANION GAP 4 mmol/L (7-16); BUN 45 mg/dL (7-18); CHLORIDE 98 mmol/L (98-107); CO2 32 mmol/L (21-32); CREATININE 2.5 mg/dL (0.6-1.0); GLUCOSE 286 mg/dL (74-106); POTASSIUM 4.6 mmol/L (3.5-5.1); SODIUM 134 mmol/L (136-145)
[2018-06-19 11:55] LABS: INR 1.1
[2018-06-19 12:01] LABS: ALBUMIN 2.8 g/dL (3.4-5.0); MAGNESIUM 1.7 mg/dL (1.8-2.4); SGOT 19 U/L (15-37); SGPT 55 U/L (30-65); TOTAL BILIRUBIN 0.9 mg/dL (<0.1-1.0); TOTAL PROTEIN 6.6 g/dL (6.4-8.2); TROPONIN-I <0.06 ng/mL (<0.06)
[2018-06-19 13:44] LABS: BE(vivo) 5.1 mmol/L (-2 to +3); HCO3 30.3 mmol/L (22.0-26.0); PCO2 47.8 mmHg (35.0-45.0); PO2 83.7 mmHg (80.0-100.0); sO2 96.3 % (92.0-98.0)
[2018-06-19 13:47] LABS: URINE BILIRUBIN NEGATIVE (Negative); URINE BLOOD NEGATIVE (Negative); URINE CLARITY CLEAR; URINE COLOR YELLOW; URINE GLUCOSE-RANDOM* TRACE (Negative); URINE KETONES NEGATIVE (Negative); URINE NITRITE-REFLEX NEGATIVE (Negative); URINE PROTEIN (DIPSTICK) NEGATIVE (Negative); URINE SPECIFIC GRAVITY 1.015 (1.005-1.035); URINE UROBILINOGEN 0.2 E.U./dl (0.2-1.0)
[2018-06-19 13:51] LABS: URINE LEUKOCYTES-REFLEX 1+ (Negative)
[2018-06-19 13:55] LABS: AMORPHOUS URATES Few /LPF (None Seen); BACTERIA-REFLEX None Seen /HPF (None Seen); CASTS None Seen /LPF (None Seen); SQUAMOUS 0-3 Few /LPF (0-3); URINE RBC None Seen /HPF (0-2); URINE WBC-REFLEX 6-15 Few /HPF (0-5); WBC CLUMPS Rare (None Seen)
[2018-06-20] VITALS (61 sets, daily range): BP systolic 61–165; BP diastolic 22–63
[2018-06-20 06:29] LABS: HEMATOCRIT 30.9 % (37.0-47.0); HEMOGLOBIN 10.4 gm/dL (12.0-15.0); MCH 35.9 pg (26.0-34.0); MCHC 33.6 g/dL (28.0-37.0); MCV 107.1 fL (80.0-100.0); RBC 2.89 mil/uL (4.20-5.00); RDW 15.7 % (10.5-14.5); WBC 5.9 thou/uL (4.0-11.0)
[2018-06-20 06:35] LABS: INR 1.1; PROTIME 11.5 Seconds (9.3-11.4)
[2018-06-20 06:42] LABS: CALCIUM 8.1 mg/dL (8.5-10.1); MAGNESIUM 1.4 mg/dL (1.8-2.4); POTASSIUM 4.6 mmol/L (3.5-5.1)
[2018-06-20 06:51] LABS: CREATININE 0.9 mg/dL (0.6-1.0)
[2018-06-20 07:08] LABS: APTT 36.9 Seconds (24.5-32.8)
[2018-06-20 19:10] LABS: GLYCOHEMOGLOBIN (HGB A1C) 6.5 % (4.8-5.6)
[2018-06-21] VITALS (78 sets, daily range): BP systolic 77–152; BP diastolic 29–87
[2018-06-21 04:55] LABS: HEMOGLOBIN 9.5 gm/dL (12.0-15.0); MCH 36.1 pg (26.0-34.0); MCHC 33.9 g/dL (28.0-37.0); MCV 106.4 fL (80.0-100.0); RBC 2.63 mil/uL (4.20-5.00); RDW 15.7 % (10.5-14.5); WBC 6.1 thou/uL (4.0-11.0)
[2018-06-21 05:02] LABS: CALCIUM 8.5 mg/dL (8.5-10.1); CREATININE 0.7 mg/dL (0.6-1.0); MAGNESIUM 1.2 mg/dL (1.8-2.4)
[2018-06-21 05:11] LABS: INR 1.1; PROTIME 11.6 Seconds (9.3-11.4)
[2018-06-22] VITALS (60 sets, daily range): BP systolic 80–162; BP diastolic 23–53
[2018-06-22 04:25] LABS: HEMATOCRIT 29.8 % (37.0-47.0); HEMOGLOBIN 9.7 gm/dL (12.0-15.0); MCH 34.7 pg (26.0-34.0); MCHC 32.4 g/dL (28.0-37.0); MCV 107.1 fL (80.0-100.0); RBC 2.79 mil/uL (4.20-5.00); RDW 15.6 % (10.5-14.5); WBC 4.4 thou/uL (4.0-11.0)
[2018-06-22 04:31] LABS: CALCIUM 8.5 mg/dL (8.5-10.1); CREATININE 0.7 mg/dL (0.6-1.0); MAGNESIUM 1.5 mg/dL (1.8-2.4); POTASSIUM 3.9 mmol/L (3.5-5.1)
[2018-06-22 04:32] LABS: INR 1.1; PROTIME 11.6 Seconds (9.3-11.4)
[2018-06-23] VITALS (61 sets, daily range): BP systolic 91–164; BP diastolic 29–54
[2018-06-23 05:09] LABS: CALCIUM 8.5 mg/dL (8.5-10.1); CREATININE 0.7 mg/dL (0.6-1.0); HEMOGLOBIN 9.7 gm/dL (12.0-15.0); MAGNESIUM 1.4 mg/dL (1.8-2.4); MCH 35.6 pg (26.0-34.0); MCHC 33.4 g/dL (28.0-37.0); MCV 106.4 fL (80.0-100.0); POTASSIUM 3.7 mmol/L (3.5-5.1); RBC 2.73 mil/uL (4.20-5.00); WBC 5.2 thou/uL (4.0-11.0)
[2018-06-23 05:13] LABS: INR 1.2; PROTIME 12.6 Seconds (9.3-11.4)
[2018-06-24] VITALS (14 sets, daily range): BP systolic 96–131; BP diastolic 30–57
[2018-06-24 04:47] LABS: INR 1.2; PROTIME 12.7 Seconds (9.3-11.4)
[2018-06-25] VITALS: BP 109/43
[2018-06-25 04:00] VITALS: BP 110/43
[2018-06-25 05:01] LABS: HEMATOCRIT 26.9 % (37.0-47.0); HEMOGLOBIN 8.8 gm/dL (12.0-15.0); MCH 35.2 pg (26.0-34.0); MCHC 32.8 g/dL (28.0-37.0); MCV 107.2 fL (80.0-100.0); RBC 2.51 mil/uL (4.20-5.00); WBC 4.7 thou/uL (4.0-11.0)
[2018-06-25 08:00] VITALS: BP 119/44
[2018-06-25] MEDS ORDERED: KEPPRA1000 MG PO (10:52)
[2018-06-25 11:42] VITALS: BP 108/36
[2018-06-25 11:46] VITALS: BP 119/50
== END 2018-06-25 12:30 | disposition home health service (06) | DRG 682 ==
LOC: ICU 09:36 → ENTRNSPT 06-25 12:31 → EDTRNSPTSTS 06-25 12:34
PROVIDERS: Internal Medicine
PROC: 02HV33Z Insertion of Infusion Device into Superior Vena Cava, Percutaneous Approach (ICD-10-PCS; principal; 2018-06-19)
DX: N17.9 Acute kidney failure, unspecified (principal); R57.0 Cardiogenic shock; E43 Unspecified severe protein-calorie malnutrition; I13.0 Hypertensive heart and chronic kidney disease with heart failure and stage 1 through stage 4 chronic kidney disease, or unspecified chronic kidney disease; I95.9 Hypotension, unspecified; I25.10 Atherosclerotic heart disease of native coronary artery without angina pectoris; E78.00 Pure hypercholesterolemia, unspecified; E66.9 Obesity, unspecified; M19.90 Unspecified osteoarthritis, unspecified site; N18.9 Chronic kidney disease, unspecified; I50.9 Heart failure, unspecified; E11.22 Type 2 diabetes mellitus with diabetic chronic kidney disease; J44.9 Chronic obstructive pulmonary disease, unspecified; I25.5 Ischemic cardiomyopathy; M25.512 Pain in left shoulder; E83.42 Hypomagnesemia; G40.909 Epilepsy, unspecified, not intractable, without status epilepticus; D64.9 Anemia, unspecified; Z68.30 Body mass index [BMI] 30.0-30.9, adult; Z90.49 Acquired absence of other specified parts of digestive tract; I25.2 Old myocardial infarction; Z99.81 Dependence on supplemental oxygen; Z95.5 Presence of coronary angioplasty implant and graft; Z95.1 Presence of aortocoronary bypass graft; Z87.891 Personal history of nicotine dependence; Z79.82 Long term (current) use of aspirin; Z79.899 Other long term (current) drug therapy; Z88.1 Allergy status to other antibiotic agents; Z91.040 Latex allergy status; Z88.2 Allergy status to sulfonamides; Z88.8 Allergy status to other drugs, medicaments and biological substances; Z91.048 Other nonmedicinal substance allergy status; Z82.49 Family history of ischemic heart disease and other diseases of the circulatory system; Z80.8 Family history of malignant neoplasm of other organs or systems
CPT/HCPCS: 10078

== ENCOUNTER 2018-07-23 12:05 | Emergency (ER) | payer OTHER ==
[~2018-07-23] VITALS: Ht 152.4 cm; Wt 76.2 kg
[~2018-07-23 12:05] MED LIST changes: +KEPPRA1000 MG PO
[2018-07-23] MEDS ORDERED: ALBUTEROL2.5 MG/31 INH (13:51)
[2018-07-23] MEDS ORDERED: KLOR-CON M2020 MEQ PO (13:52)
[2018-07-23] MEDS ORDERED: LISINOPRIL20 MG PO (13:52)
[2018-07-23] MEDS ORDERED: LOPRESSOR25 PO (13:53)
[2018-07-23 14:23] VITALS: BP 110/59
== END 2018-07-23 14:28 | disposition home or self-care (01) ==
LOC: ER 12:05
DX: K56.41 Fecal impaction (principal); I10 Essential (primary) hypertension; E11.9 Type 2 diabetes mellitus without complications; E78.5 Hyperlipidemia, unspecified; J44.9 Chronic obstructive pulmonary disease, unspecified; F17.210 Nicotine dependence, cigarettes, uncomplicated; Z90.49 Acquired absence of other specified parts of digestive tract; Z98.890 Other specified postprocedural states; Z95.5 Presence of coronary angioplasty implant and graft; Z88.8 Allergy status to other drugs, medicaments and biological substances; Z95.1 Presence of aortocoronary bypass graft

== ENCOUNTER 2018-11-17 08:27 | Inpatient (IN) | payer OTHER ==
[~2018-11-17] VITALS: Ht 152.4 cm; Wt 73.2 kg
--- NOTE | ~2018-11-17 | HC ---
[facility] [place] [place] [address] CONSULTATION Name: SILVANO SIMPSON Room #: 459-P ADM IN M.R.#: [id number] Admission: 11/17/18 ������������������ Attend Phys: Hector Camacho MD Discharge: ������������������ Date of : 46 Report #: [id number] THIS REPORT FOR: //name// CC: Hector Resendez REQUESTING PHYSICIAN: Dr. Camacho. CHIEF COMPLAINT: Altered mental status. HISTORY OF PRESENT ILLNESS: The patient is a 68-year-old female who presented to the Emergency Department on 11/17 with altered mental status, found down at home at 7:00 a.m. and had apparent nonresponsiveness at this time, although had pulse, was breathing normally. She was brought to the Emergency Department via EMS. This is one of several times that she has done this, last approximately 6 months ago. These appear to be postictal symptoms which had apparently caused delirium in each case, although this is the longest lasting per her who is present in my interview. The patient is unable to respond significantly to me, although she does say an occasional yes or no to questions. She appears to have no significant pain at this time. She does not appear to understand where she is at, what her diagnosis is. The patient does open eyes at sometimes, but then frequently has a poor attention level. PAST MEDICAL HISTORY: Seizure disorder, currently on Keppra 1000 mg b.i.d.; also, chronic hypoxic respiratory failure, on 2 liters at home; COPD; CAD with CABG in 2000 and multiple stents x 4; hypertension; type 2 diabetes; hyperlipidemia. PAST SURGICAL HISTORY: Appendectomy, right lower extremity ORIF, kyphoplasty. MEDICATIONS: Keppra 1000 mg b.i.d., Lipitor 80 mg at bedtime, albuterol, lisinopril 20 mg daily, tramadol, levothyroxine, metformin. ALLERGIES: LASIX AND NICKEL. FAMILY HISTORY: Noncontributory. SOCIAL HISTORY: , lives at home. No significant tobacco, alcohol or illicit drug use currently. REVIEW OF SYSTEMS: Unable to obtain due to medical condition at this time. PHYSICAL EXAMINATION: VITAL SIGNS: Include temperature 36.8, pulse 113, respirations 19, blood pressure 133/58, 92% on 2 liters nasal cannula. GENERAL: The patient is not alert, poor attention level overall, in no acute distress, though. [facility] [address] [place] [address] CONSULTATION Name: SILVANO SIMPSON Fco Room #: 459-P [facility] IN .R.#: [id number] Admission: 11/17/18 ������������������ Attend Phys: Hector Camacho MD Discharge: ������������������ Date of : 46 Report #: [id number] HEENT: Extraocular muscles appear to be intact. Normocephalic and atraumatic. CARDIOVASCULAR: Regular rate and rhythm without murmur. LUNGS: Clear to auscultation bilaterally. No wheezes, rales or rhonchi. ABDOMEN: Soft, nontender to palpation, positive bowel sounds noted, but diminished. LABORATORY DATA: Included a positive nitrite. CT head negative. Chest x-ray negative. White blood cells 10.5, MCV 101.1, hemoglobin 9.5. ASSESSMENT AND PLAN: 1. Delirium, at this time unknown origin. I suspect that this is likely due to a seizure disorder or possibly combined with urinary tract infection. At this point in time, the patient appears to be improving. I agree with Dr. Greene's consult. Certainly would like his input but at this point in time, I feel that we can wait on further decision making with regards to palliative care. Certainly, they have already decided that she is a DNR. This was prior to her presenting to the hospital. She has been intubated prior with one of these episodes. 2. Seizure disorder. Again, as above, does not appear to be status epilepticus, but at this point in time appears to be related to delirium. Again, appreciate Dr. Greene's input with regards to this. 3. [id number] hypoxic respiratory failure, again appears to be improving, possibly due to all these previous stated problems. Currently, she appears stable enough that she will not likely require intubation, but she is currently DNR. 4. Urinary tract infection. At this point in time, I agree with her Rocephin treatment and IV fluid hydration. Again, I would continue to follow along. I will step back as her care continues to progress. Potentially, she will have improvement to the point where she does not need discussion of palliative care any further. Discussed with today. Thank you very much for the consultation. ��������������������������������������������� ���������������������������������������� By: ��������������������������������������������� 2258 [id number] Bib Sheppard, DO /nt
[~2018-11-17 08:27] MED LIST changes: +ALBUTEROL2.5 MG/31 INH; +KLOR-CON M2020 MEQ PO
[2018-11-17 08:28] VITALS: BP 116/70
[2018-11-17 08:48] LABS: ABSOLUTE NEUTROPHILS 9.4 thou/uL (1.4-8.2); BASOPHILS 1.1 % (0.0-2.0); EOSINOPHILS 0.2 % (0.0-3.0); HEMATOCRIT 28.6 % (37.0-47.0); HEMOGLOBIN 9.5 gm/dL (12.0-15.0); LYMPHOCYTES 6.4 % (24.0-44.0); MCH 33.7 pg (26.0-34.0); MCHC 33.3 g/dL (28.0-37.0); MCV 101.1 fL (80.0-100.0); PLATELET COUNT 340 thou/uL (150-400); POLYS 89.3 % (36.0-66.0); RBC 2.83 mil/uL (4.20-5.00); RDW 13.9 % (10.5-14.5); WBC 10.5 thou/uL (4.0-11.0)
[2018-11-17 09:00] LABS: CALCIUM 9.9 mg/dL (8.5-10.1); CREATININE 0.9 mg/dL (0.6-1.0); POTASSIUM 5.2 mmol/L (3.5-5.1)
[2018-11-17 09:02] LABS: BE(vivo) 1.9 mmol/L (-2 to +3); PCO2 51.4 mmHg (35.0-45.0); PO2 68.2 mmHg (80.0-100.0); pH 7.354 (7.360-7.450); sO2 92.6 % (92.0-98.0)
[2018-11-17 09:06] LABS: ALBUMIN 2.4 g/dL (3.4-5.0); TOTAL BILIRUBIN 0.2 mg/dL (<0.1-1.0); TOTAL PROTEIN 8.1 g/dL (6.4-8.2)
[2018-11-17 09:27] LABS: URINE BILIRUBIN NEGATIVE (Negative); URINE BLOOD NEGATIVE (Negative); URINE COLOR YELLOW; URINE GLUCOSE-RANDOM* 3+ (Negative); URINE KETONES TRACE (Negative); URINE LEUKOCYTES-REFLEX NEGATIVE (Negative); URINE PROTEIN (DIPSTICK) NEGATIVE (Negative); URINE SPECIFIC GRAVITY 1.015 (1.005-1.035); URINE UROBILINOGEN 0.2 E.U./dl (0.2-1.0)
[2018-11-17 09:28] LABS: URINE CLARITY HAZY; URINE NITRITE-REFLEX POSITIVE (Negative)
[2018-11-17 09:46] LABS: AMP/METHAMP Negative (Negative); BARBITURATES Negative (Negative); BENZODIAZEPINES Negative (Negative); COCAINE Negative (Negative); METHADONE Negative (Negative); OPIATES Negative (Negative); PCP Negative (Negative)
[2018-11-17 10:09] LABS: CASTS None Seen /LPF (None Seen); CRYSTALS None Seen /LPF (None Seen); SQUAMOUS 4-10 Moderate /LPF (0-3)
[2018-11-17 10:10] LABS: URINE RBC None Seen /HPF (0-2); URINE WBC-REFLEX 6-15 Few /HPF (0-5)
[2018-11-17 10:11] LABS: BACTERIA-REFLEX >30 Many /HPF (None Seen)
[2018-11-17 10:14] LABS: APTT 32.2 Seconds (24.5-32.8); INR 1.1; PROTIME 11.3 Seconds (9.3-11.4)
[2018-11-17 11:20] LABS: LARGE PLATELETS FEW
[2018-11-17 12:10] VITALS: BP 128/45
[2018-11-17 12:11] VITALS: BP 115/53
[2018-11-17 12:39] VITALS: BP 130/43
[2018-11-17 15:45] VITALS: BP 133/58
--- NOTE | 2018-11-17 18:05 | EKG ---
[address] [address] ELECTROCARDIOGRAM REPORT Name: CALVINSILVANO Fco Room #: 459-P ADM IN M.R.#: [id number] ������������������ Admission: 11/17/18 ������������������ Attend Phys: Hector Camacho MD Discharge: ������������������ Date of : 46 Report #: [id number] ����������������������������������������������������������������� [id number] THIS REPORT FOR: //name// [facility] ED Test Date: 2018-11-17 Test Time: 09:26:10 Pat Name: SILVANO SIMPSON Department: Room: [facility] Gender: F [employer] Technician: Fco HAUSER RN : 1950 Requested By: Marquez Branham Order Number: [id number] MD: Sherman Calvert Measurements Intervals Perry Rate: 91 P: 68 DC: 195 QRS: 27 QRSD: 95 T: 56 QT: 382 QTc: 471 Interpretive Statements Sinus rhythm Probable left atrial enlargement Compared to ECG 06/19/2018 19:29:09 Sinus bradycardia no longer present Poor R-wave progression no longer present Electronically Signed On 11-17-2018 18:05:09 CDT by Sherman Calvert [email or web address] ��������������������������������������������� <ELECTRONICALLY SIGNED> ���������������������������������������� By: Sherman Calvert MD ��������������������������������������������� 11/17/18 1805 5 5 Sherman Calvert MD /EPI
[2018-11-17 19:43] VITALS: BP 120/46
--- NOTE | 2018-11-17 19:58 | NUR ---
ASSUMED CARE PT FROM ER FOR RESPIRATORY FAILURE POSSIBLE SEIZURE. NON RESPONSIVE DURING ADMITION. PT BECAME ALERT APPROXIMATLEY 1430 AND MOANING. NPO WITH ORAL SWABS. BETH INPLACE. DR AYALA AND DR EVERETT ROUNDED. ADMISSION HISTORY AND ASSESMENT COMPLETED. FALL PRECATIONS IN PLACE. FAMILY BEDSIDE.
[2018-11-18 03:40] VITALS: BP 136/67
[2018-11-18 05:29] LABS: HEMOGLOBIN 8.7 gm/dL (12.0-15.0); MCH 32.4 pg (26.0-34.0); MCHC 32.2 g/dL (28.0-37.0); MCV 100.8 fL (80.0-100.0); RBC 2.67 mil/uL (4.20-5.00); RDW 14.2 % (10.5-14.5)
[2018-11-18 05:40] LABS: CALCIUM 8.9 mg/dL (8.5-10.1); CREATININE 0.6 mg/dL (0.6-1.0); POTASSIUM 4.2 mmol/L (3.5-5.1)
[2018-11-18 08:42] VITALS: BP 139/62
--- NOTE | 2018-11-18 10:55 | NUR ---
Nutrition: Pt admitted due to respiratory failure. Seen for nancy score of 10. Family wishes to continue with palliative care. Wt has remained mostly stable x5 months. June 2018 wt 165 lbs, current 161 lbs. Current diet order NPO. Will remain available if care plan changes, otherwise low nutrition risk.
--- NOTE | 2018-11-18 15:34 | NUR ---
PT ADMITTED RELATED TO RESP FAILURE. CM REVIEWED CHART AND SPOKE WITH CARE TEAM. CM MET WITH PT AND SPOUSE AT BEDSIDE THIS DAY. PT'S SPOUSE ANSWERED ASSESSMENT QUESTIONS. HE INDICATED THAT PT RESIDES IN A HOUSE WITH HIM AND THEIR STEP DTR. HE INDICATED THERE ARE 2 STEPS TO ENTER THE HOUSE AND A FULL FLIGHT TO THE BASEMENT WHERE THEY RESIDE. 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 HE INDICATED THAT PT HAD HOME HEALTH IN THE PAST BUT HE DIDN'T FEEL THAT THEY HELPED HE COULDN'T RECALL PROVIDER. HE INDICATED NO PREVIOUS SKILLED REHAB STAY. HE INDICATED HE ANTICIPATES PT RETURNING HOME ONCE MEDICALLY STABLE. CM TO FOLLOW INDICATED WITH DC PLANNING.
[2018-11-18 20:05] VITALS: BP 146/66
--- NOTE | 2018-11-18 20:40 | NUR ---
ASSUMED CARE 0700. PATIENT ALERT TO SELF. YELLS AND BECOMES AGGITIATED WITH CARES. PAIN MANAGED WITH MEDICATIONS, TOLERATED CLEAR LIQUID DIET. TOOK PO MEDS WITHOUT PROBLEMS. FALL PRECAUTIONS IN PLACE. FAMILY BEDSIDE AT THIS TIME. HOURLY ROUNDING IN PLACE. PT DOES NOT USED CALL LIGHT APPROPRIATLEY. STAFF ANTICIPATE NEEDS. BETH IN PLACE. NO BM NOTED AT THIS TIME.
[2018-11-19 04:34] VITALS: BP 158/75
--- NOTE | 2018-11-19 07:06 | NUR ---
Assumed care at 1845. Pt resting in bed. VSS. AOX3. Pt gets easily agitated. Refused to be touched. Has been none compliant with care throught the night. Morphine frequency changed to Q3H prn. No identified needs at the moment. Call light within reach. Will continue to monitor.
[2018-11-19 10:19] VITALS: BP 159/82
[2018-11-19 13:14] VITALS: BP 170/82
[2018-11-19 16:22] LABS: HEMATOCRIT 26.2 % (37.0-47.0); HEMOGLOBIN 8.9 gm/dL (12.0-15.0); MCH 33.8 pg (26.0-34.0); MCHC 34.2 g/dL (28.0-37.0); MCV 98.9 fL (80.0-100.0); RBC 2.65 mil/uL (4.20-5.00); RDW 13.9 % (10.5-14.5); WBC 9.8 thou/uL (4.0-11.0)
[2018-11-19 16:26] LABS: CALCIUM 9.2 mg/dL (8.5-10.1); MAGNESIUM 2.2 mg/dL (1.8-2.4); POTASSIUM 4.7 mmol/L (3.5-5.1)
[2018-11-19 16:28] LABS: CREATININE 2.1 mg/dL (0.6-1.0)
[2018-11-19 19:07] VITALS: BP 141/73
--- NOTE | 2018-11-19 19:44 | NUR ---
AAOX3 PLEASANT BUT YELLS OUT IN PAIN AND FOR HELP. C/O BACK PAIN AND GENERALIZED SENSITIIVTY WITH ANY MOVEMENT. INFORMED MD OF RITU AND CONSULT PLACED FOR INFECTIOUS DISEASE. BLOOD CULTURES DONE. IV INFUSING WITHOUT DIFFICULTY
[2018-11-20 03:43] VITALS: BP 119/53
--- NOTE | 2018-11-20 03:58 | NUR ---
patient aox2 forgetful and confused. pain controlled this shift.patient turned q 2 hours. cath care done. patient in bed asleep at this time breathing regular and unlaboured
[2018-11-20 05:41] LABS: HEMATOCRIT 25.8 % (37.0-47.0); HEMOGLOBIN 8.7 gm/dL (12.0-15.0); MCH 33.6 pg (26.0-34.0); MCHC 33.6 g/dL (28.0-37.0); MCV 100.2 fL (80.0-100.0); RBC 2.58 mil/uL (4.20-5.00); RDW 14.2 % (10.5-14.5); WBC 8.9 thou/uL (4.0-11.0)
[2018-11-20 05:56] LABS: CALCIUM 8.8 mg/dL (8.5-10.1); MAGNESIUM 1.4 mg/dL (1.8-2.4); POTASSIUM 3.8 mmol/L (3.5-5.1)
[2018-11-20 06:00] LABS: CREATININE 0.5 mg/dL (0.6-1.0)
[2018-11-20 07:12] VITALS: BP 143/66
[2018-11-20 13:50] VITALS: BP 142/54
--- NOTE | 2018-11-20 16:03 | NUR ---
PT IS PROGRESSING TOWARD GOAL OF DISCHARGE. PT IS CLEARER AND IS COMMUNICATIVE AT THIS TIME. PT AND OT HAVE BEEN ORDERED AND WE ARE AWAITING EVALS. CM TO FOLLOW INDICATED WITH DC PLANNING.
--- NOTE | 2018-11-20 17:01 | NUR ---
PT ALERT AND ORIENTED TIMES FOUR, VSS, 97%2L, IVF INFUSING PER ORDER, BETH TO DD. PT C/O PAIN PRN PAIN MEDICATIONS GIVEN WITH SOME RELEIF. PT TOLERATES MEDS AND MEALS. PT UP TO CHAIR FOR SOME PART OF THE SHIFT. PT SLOWLY PROGRESSING TOWRADS POC GOALS.
[2018-11-20 19:59] LABS: TSH 4.587 uIU/mL (0.358-3.740)
--- NOTE | 2018-11-20 20:36 | HC ---
[facility] [place] [address] CONSULTATION Name: SILVANO SIMPSON Fco Room #: 459-P [facility] IN M.R.#: [id number] Admission: 11/17/18 ������������������ Attend Phys: Hector Camacho MD Discharge: ������������������ Date of : 46 Report #: [id number] THIS REPORT FOR: //name// CC: Hector Resendez REASON FOR CONSULTATION: I was asked to evaluate concerning low-grade fever and urinary tract infection. HISTORY OF PRESENT ILLNESS: The patient is a 68-year-old with history of coronary artery disease, diabetes, hypertension who presents with suspected seizure. She has had previous seizures in the past and has been on Keppra. Unclear if she has been taking her medications appropriately. She presented to the Emergency Room on 11/17/2018 where she was found unresponsive at 07:00 in the morning. She lives in the basement of her home. She was in her normal state when she went to bed. She uses oxygen at 2 liters per nasal cannula on a regular basis. There was no trauma. She had no injuries from a tonic-clonic seizure. She was not incontinent. She had delirium following her awakening. Over the last two days, she has had temperature up to 100 degrees. She complains of myalgias, arthralgias. No rashes or decubiti. No cough or sputum production. No nausea, vomiting or diarrhea. No dysuria or flank pain. No headaches. REVIEW OF SYSTEMS: A 10-point review of systems was negative other than described above. ALLERGIES: LASIX, NICKEL. MEDICATIONS: As noted on her MAR, which were reviewed. PAST MEDICAL HISTORY: Coronary artery bypass, NE, hypertension, diabetes, hyperlipidemia, COPD, oxygen dependent. PAST SURGICAL HISTORY: Appendectomy, right leg surgery for fracture, tonsillectomy, adenoidectomy, kyphoplasty. FAMILY HISTORY: Noncontributory. SOCIAL HISTORY: Smoker of cigarettes. No significant alcohol intake. PHYSICAL EXAMINATION: VITAL SIGNS: Afebrile and hemodynamically stable. GENERAL: She is alert and cooperative. She was in pain she stated all over. SKIN: Without rash or decubitus. No palpable adenopathy. HEENT: Eyes without scleral icterus. Mouth without mucositis. NECK: Supple. LUNGS: Clear. [address] [address] CONSULTATION Name: SILVANO SIMPSON Room #: 459-P [facility] IN M.R.#: [id number] Admission: 11/17/18 ������������������ Attend Phys: Hector Camacho MD Discharge: ������������������ Date of : 46 Report #: [id number] HEART: Regular, without murmur, gallop or rub. ABDOMEN: Mild distention, diffusely tender, no hepatosplenomegaly or mass appreciated. GENITORECTAL: Not performed. EXTREMITIES: She was tender throughout to palpation. Would not let further evaluation when I tried to move her joints. She would guard. There was no synovitis identified. No peripheral edema. No cyanosis. NEUROLOGIC: Cranial nerves intact. Difficult to assess her strength where the patient would not allow full examination. Sensation was intact in upper and lower extremities. Mood appeared normal. LABORATORY STUDIES: Urinalysis had few wbc's, many bacteria. Urine culture shows E. coli pansensitive. Chest x-ray was clear. Procalcitonin 1, sodium 141, potassium 4.7, bicarbonate 23, creatinine 2.1, up from 0.6 on admission. Alkaline phosphatase 118, AST normal. Hemoglobin 8.9, WBC 9.8, platelet count 349,000. On 2 liters of oxygen, her ABG showed pO2 of 68, pCO2 of 51, pH 7.35. IMPRESSION: Suspected seizure with postictal state, now with myalgias, arthralgias. Temperature up to 100 degrees. No leukocytosis, although she has anemia and acute kidney injury. The urine culture would be most consistent with asymptomatic bacteriuria or cystitis, doubt upper urinary tract infection. PLAN: Would recommend continuing ceftriaxone. Follow up chemistry and follow anemia. X-ray of her abdomen. ��������������������������������������������� <ELECTRONICALLY SIGNED> ���������������������������������������� By: Manuel Hernandez MD ��������������������������������������������� 11/20/182035 05 1348 Manuel Hernandez MD /nt
[2018-11-20 21:16] VITALS: BP 122/55
--- NOTE | 2018-11-21 03:26 | NUR ---
Assumed care at 1845. Pt resting in bed. AOX4. VSS. Still requesting pain medication around the clock. Turn Q2. Legs elevated. Nance intact. Cath care performed. Took her down stairs for CAT Scan of the Spine. No identified needs at the moment. Call light within reach. Will continue to monitor.
[2018-11-21 05:10] VITALS: BP 138/61
[2018-11-21 05:18] LABS: HEMATOCRIT 23.5 % (37.0-47.0); HEMOGLOBIN 7.8 gm/dL (12.0-15.0); MCH 33.5 pg (26.0-34.0); MCHC 33.4 g/dL (28.0-37.0); MCV 100.3 fL (80.0-100.0); RBC 2.34 mil/uL (4.20-5.00)
[2018-11-21 05:38] LABS: CALCIUM 8.8 mg/dL (8.5-10.1); CREATININE 0.5 mg/dL (0.6-1.0); MAGNESIUM 1.5 mg/dL (1.8-2.4); POTASSIUM 3.8 mmol/L (3.5-5.1)
[2018-11-21 08:03] VITALS: BP 146/71
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
[2018-11-21 15:43] VITALS: BP 112/66
--- NOTE | 2018-11-21 16:22 | NUR ---
CM PROVIDED PT WITH [facility] SNF LIST FOR REVIEW FOR ADMISSION FOR POST ACUTE CARE STAY. CM TO FOLLOW UP WITH PT AND HER SPOUSE TO SEE WHERE THEY WANT REFERRALS SENT. CM TO FOLLOW INDICATED WITH DC PLANNING.
--- NOTE | 2018-11-21 17:58 | NUR ---
PATIENT SEEN BY PETER ACE NP WITH DR. LAZCANO, THIS DATE FOR REHAB CONSULT. PATIENT'S PREFERENCE IS TO GO TO [facility] FOR REHAB NEEDS. 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 THANK YOU FOR THIS REFERRAL.
--- NOTE | 2018-11-21 18:25 | NUR ---
ASSUMED CARE AT 0700, SHIFT ASSESSMENT DONE, MEDS GIVEN, VSS. REPORTED PAIN, PRN PAIN MEDS GIVEN. ACHS, COVERAGE NEEDED. HAD EEG AND CT SCAN OF L-SPINE DONE. BETH IN PLACE. WILL CONTINUE TO ASSESS AND ASSIST WITH ADLs NEEDED.
[2018-11-21 20:22] VITALS: BP 120/59
[2018-11-22 03:29] VITALS: BP 147/79
--- NOTE | 2018-11-22 07:40 | NUR ---
Assumed care at 1845. Pt resting in bed. AOX4. VSS. Has been requesting pain medication around the clock. On 3L CAMI. Found an e-cigaratte in pts room. Sent it to security. No identified needs at the moment. Will continue to monitor.
[2018-11-22 08:00] VITALS: BP 121/54
[2018-11-22 08:28] LABS: CALCIUM 8.8 mg/dL (8.5-10.1); CREATININE 0.4 mg/dL (0.6-1.0); MAGNESIUM 1.6 mg/dL (1.8-2.4); POTASSIUM 4.5 mmol/L (3.5-5.1)
[2018-11-22 09:06] LABS: HEMATOCRIT 24.4 % (37.0-47.0); HEMOGLOBIN 8.1 gm/dL (12.0-15.0); MCH 33.2 pg (26.0-34.0); MCHC 33.3 g/dL (28.0-37.0); MCV 99.6 fL (80.0-100.0); RBC 2.45 mil/uL (4.20-5.00); RDW 13.9 % (10.5-14.5); WBC 6.6 thou/uL (4.0-11.0)
[2018-11-22 15:00] VITALS: BP 121/49
--- NOTE | 2018-11-22 19:21 | NUR ---
ASSUMED CARE AT 0700, SHIFT ASSESSMENT DONE, MEDS GIVEN, VSS .REPROTED PAIN, PRN PAIN MEDS GIVEN. WAS UP TO THE CHAIR WITH MAX ASSIST TIMES 2. VERY WEAK, HAD DIFFICULTY TRANFERSSING FROM CHAIR TO BED. ORAL PAIN MED ENCOURAGED, WILL CONTINUE TO ASSESS AND ASSIST WITH ADLs.
[2018-11-22 20:23] VITALS: BP 120/57
[2018-11-23 04:56] LABS: HEMATOCRIT 23.8 % (37.0-47.0); HEMOGLOBIN 7.9 gm/dL (12.0-15.0); MCH 33.3 pg (26.0-34.0); MCHC 33.2 g/dL (28.0-37.0); MCV 100.3 fL (80.0-100.0); RBC 2.37 mil/uL (4.20-5.00); RDW 13.9 % (10.5-14.5)
[2018-11-23 05:07] LABS: CALCIUM 8.6 mg/dL (8.5-10.1); CREATININE 0.5 mg/dL (0.6-1.0); MAGNESIUM 1.5 mg/dL (1.8-2.4); POTASSIUM 4.1 mmol/L (3.5-5.1)
--- NOTE | 2018-11-23 07:45 | NUR ---
progress pt a/o reports pain to back taking hydrocodone and hydromorphone with effect, vss, ivf's infusing as ordered. up to bsc with 1. continue poc.
[2018-11-23 08:02] VITALS: BP 133/59
--- NOTE | 2018-11-23 10:54 | NUR ---
ASSUMED CARE AT 0700, SHIFT ASSESMENT DONE, MEDS GIVEN, VSS. REPORTED GENERALIZED PAIN, PRN PAIN MED GIVEN. WILL CONTINUE TO ASSESS AND ASSIST WITH ADLs NEEDED.
[2018-11-23 11:22] LABS: % SATURATION 15 % (20-39); IRON 20 ug/dL (50-170); TIBC 133 ug/dL (250-450)
[2018-11-23 12:37] LABS: FOLIC ACID 25.6 ng/mL (8.6-58.9)
[2018-11-23 14:12] VITALS: BP 130/50
[2018-11-23 19:06] VITALS: BP 135/70
[2018-11-24 03:39] VITALS: BP 136/59
[2018-11-24 08:00] VITALS: BP 134/67
--- NOTE | 2018-11-24 11:39 | NUR ---
dp faxed SNF referral to [facility] and to [facility]. MICHELLE spoke to Auer at and she received fax and will give to appropriate person for review.
[2018-11-24 13:08] LABS: ANA INTERPRETATION Negative (Negative)
[2018-11-24 15:00] VITALS: BP 117/51
--- NOTE | 2018-11-24 17:06 | NUR ---
AWAITING RESPONSE FOR THE TWO SKILLED FACILITIES AND AUTH FOR SKILLED ADMISSION. CM TO FOLLOW INDICATED WITH DC PLANNING.
--- NOTE | 2018-11-24 18:40 | NUR ---
ASSUMED CARE OF PATIENT AT 0715, PATIENT ALERT AND ORIENTED X 4. PATIENT UP WITH ASSIST X 1. PATIENT C/O CHRONIC PAIN GENERALIZED OVER BODY. PATIEWNT HAS RECEIVED DIALUDID 0.5 MG IV AND HYDROCODONE 5/325 MG THIS SHIFT FOR PAIN. DR SEGURA CONSULTED DUE TO MULTI AREAS OF PAIN, NEW ORDERS FOR SOLU-MEDROL IV X 1 AND WILL START PO PREDNISONE IN AM. PATIENT HAS RIGHT FOREARM IV IN PLACE WITH NS AT 75CC/HR.BLOOD SUGAR MONITORING ORDERED, INSULIN GIVEN PER S/S. WILL CONTINUE TO MONITOR.
[2018-11-24 21:02] VITALS: BP 120/60
--- NOTE | 2018-11-25 03:15 | NUR ---
patient aox4 makes needs known. paient had a bowel movement this shift, pericare and barrier cream applied as needed. cath care done this shift. no seizures activities this shift. pain controlled this shift. patient in bed asleep at this time breathing regular and unlaboured.
[2018-11-25 03:20] VITALS: BP 135/57
[2018-11-25 07:42] VITALS: BP 130/67
--- NOTE | 2018-11-25 10:01 | NUR ---
dp spoke with Jayde at [facility] and they can accept patient, with the condition the patient abides by the non smoking policy. Dp related this information to Herb at [facility] and she will speak to patient about this issue and dp will get back to Jayde.
--- NOTE | 2018-11-25 10:03 | NUR ---
Followup: Pt states appetite is good as long as she gets foods she likes to eat. Not happy with some of menu items and starting to choose/order from alternative menu. Would like to have glucerna shakes with meals-will order. No new wts. Possible discharge tomorrow per pt. Low nutrition risk
--- NOTE | 2018-11-25 12:59 | NUR ---
Discharge Planning: dp faxed updated therapy notes to [facility]. DP also will call Aure/admissions at facility to confirm she received updates.
--- NOTE | 2018-11-25 15:22 | NUR ---
CM FOLLOWE UP WITH PT AT BEDSIDE THIS DAY AND INDICATED THAT BOTH [facility] AND [facility] WERE REVIEWING REFERRAL. CM SPOKE WITH PT'S DTR AND NOTIFIED HER WELL. CM FOLLOWED UP WITH [facility] AND THEY INDICATED THAT THEY HAD SUBMITTED FOR AUTH. PT'S DTR WENT AND VISITED FACILITIES AND SHE INDICATED SHE WOULD PREFER THAT PT GO TO [facility] IN [place]. CM CALLED AND SPOKE WITH [facility] IN ADMISSIONS AND THEY TAKE PT'S INSURANCE. REFERRAL WAS SENT. CM TO FOLLOW INDICATED WITH DC PLANNING.
--- NOTE | 2018-11-25 15:44 | NUR ---
Received awake on bed. Due medications given as prescribed. A+Ox4. On 2lpm via nasal cannula. On blood sugar monitoring, SS insulin given as prescribed; With CBG of 379 at pre-lunch, pt said she had orange juice prior. With lemon cath in situ- draining well. Complained of pain, PRN pain meds given as prescribed with partial pain relief. Seen by Dr. Villalba- for fecal occult blood, still awaiting for specimen. With IVF NS at R FA 75mls/hr, infusing well. On seizure precaution, no seizure episode noted the whole shift. Pts daughter visited this PM, decided on the facility that they will go to- CM informed. Pt's daughter concerned about her mom's pain medication and if there is oral counter part of Dilaudid, if patient will be transferred to facility. handed over to night staff; patient does not have discharge orders yet. Had OT/PT session today-tolerated well.
[2018-11-25 18:13] VITALS: BP 132/78
[2018-11-25 20:17] VITALS: BP 104/51
--- NOTE | 2018-11-26 03:34 | NUR ---
Assumed care at 1845. Pt resting in bed. AOX4. VSS. Worked well with PT today. Nance intact. Now on 2L NC. Stool sample still need to be collected. IV fluids discontinued. On seizure precaution. Possible discharge to SNF today. No identified needs at the moment. Will continue to monitor.
[2018-11-26 04:45] VITALS: BP 115/58
[2018-11-26 07:16] VITALS: BP 110/48
[2018-11-26] MEDS ORDERED: NEURONTIN 400400 M1 PO (12:33)
[2018-11-26] MEDS ORDERED: LIPITOR 40 MG T40 M1 PO (12:33)
[2018-11-26] MEDS ORDERED: NEURONTIN600 MG PO (12:33)
[2018-11-26] MEDS ORDERED: COLACE100 MG PO (12:33)
[2018-11-26] MEDS ORDERED: CEFDINIR300 MG PO (12:33)
[2018-11-26] MEDS ORDERED: IRON325 PO (12:33)
[2018-11-26] MEDS ORDERED: PREDNISONE 20 M20 MG PO (12:39)
[2018-11-26] MEDS ORDERED: PROTONIX 20 MG20 M1 PO (12:39)
[2018-11-26] MEDS ORDERED: NORCO 5-325 TA1 EACH PO (12:40)
[2018-11-26] MEDS ORDERED: NOVOLOG100 UNIT/1 SUBQ (12:49)
--- NOTE | 2018-11-26 14:34 | NUR ---
discharge planning: Patient will discharge today to [facility], dp faxed orders and summary to [facility] fax [phone]
--- NOTE | 2018-11-26 16:36 | NUR ---
PT HAS BEEN ACCEPTED FOR ADMISSION TO [facility] AND THEY HAVE INSIRANCE AUTH. ORDERS HAVE BEEN FAXED. CHART COPY MADE. VAN TRANSPORT VIA [facility] WITH 3L O2 SET UP FOR [id number]. REPORT TO BE CALLED TO ASK FOR CICI. SHOULD THERE BE ISSUES OR IF TRANSPORT IS LATE CONTACT AYAH AT . PT AND DTR ARE AWARE AND AGREEABLE. NO OTHER CM INTERVENTION INDICATED AT THIS TIME. CASE CLOSED.
--- NOTE | 2018-11-26 16:46 | NUR ---
PT ASSESSED AT START OF SHIFT. PT UP ALL SHIFT IN THE CHAIR PER HER REQUEST. TOOK A SHOWER W/ ASSIST. WALKED W/ THERAPY. EATING AND DRINKING WELL. KIRIT DC'D PER ORDERS. NO BM THIS SHIFT. PLAN ON DC TO [facility] FOR REHAB TODAY.
== END 2018-11-26 20:19 | DRG 189 ==
LOC: ER 08:27 → EROBS 12:10 → 4W 12:10
PROVIDERS: Emergency Medicine; Internal Medicine; Psychiatry & Neurology Neuromuscular Medicine; ADMIT Hospitalist
DX: J96.21 Acute and chronic respiratory failure with hypoxia (principal); N17.9 Acute kidney failure, unspecified; G93.40 Encephalopathy, unspecified; G40.909 Epilepsy, unspecified, not intractable, without status epilepticus; J96.22 Acute and chronic respiratory failure with hypercapnia; N30.90 Cystitis, unspecified without hematuria; Z66 Do not resuscitate; I10 Essential (primary) hypertension; E78.5 Hyperlipidemia, unspecified; J44.9 Chronic obstructive pulmonary disease, unspecified; E87.5 Hyperkalemia; I25.10 Atherosclerotic heart disease of native coronary artery without angina pectoris; F17.210 Nicotine dependence, cigarettes, uncomplicated; D63.8 Anemia in other chronic diseases classified elsewhere; F43.20 Adjustment disorder, unspecified; F41.9 Anxiety disorder, unspecified; G89.4 Chronic pain syndrome; B96.20 Unspecified Escherichia coli [E. coli] as the cause of diseases classified elsewhere; M06.9 Rheumatoid arthritis, unspecified; M13.0 Polyarthritis, unspecified; E11.65 Type 2 diabetes mellitus with hyperglycemia; T38.0X5A Adverse effect of glucocorticoids and synthetic analogues, initial encounter; Y92.89 Other specified places as the place of occurrence of the external cause; Z88.8 Allergy status to other drugs, medicaments and biological substances; Z79.899 Other long term (current) drug therapy; Z79.82 Long term (current) use of aspirin; Z79.84 Long term (current) use of oral hypoglycemic drugs; Z95.1 Presence of aortocoronary bypass graft; Z95.2 Presence of prosthetic heart valve; Z99.81 Dependence on supplemental oxygen; Z90.89 Acquired absence of other organs; Z82.49 Family history of ischemic heart disease and other diseases of the circulatory system; Z91.040 Latex allergy status
CPT/HCPCS: 10045; 10047

== ENCOUNTER → 2020-05-24 | Outpatient (CLI) | payer OTHER ==
[~2020-05-24] MED LIST changes: +CEFDINIR300 MG PO; +COLACE100 MG PO; +IRON325 PO; +LIPITOR 40 MG T40 M1 PO; +NEURONTIN 400400 M1 PO; +NOVOLOG100 UNIT/1 SUBQ; +PROTONIX 20 MG20 M1 PO
== END ==
LOC: SJCVCIMAG 11:22
PROVIDERS: ATTEND Internal Medicine Cardiovascular Disease
DX: I25.5 Ischemic cardiomyopathy (principal); I49.1 Atrial premature depolarization; I25.810 Atherosclerosis of coronary artery bypass graft(s) without angina pectoris; Z95.1 Presence of aortocoronary bypass graft; Z79.899 Other long term (current) drug therapy; Z87.891 Personal history of nicotine dependence

== ENCOUNTER → 2020-11-23 | Outpatient (CLI) | payer OTHER | LOC: SJCVC 15:25 | PROVIDERS: ATTEND Internal Medicine Cardiovascular Disease | DX: R94.31 Abnormal electrocardiogram [ECG] [EKG] (principal); I25.810 Atherosclerosis of coronary artery bypass graft(s) without angina pectoris; I10 Essential (primary) hypertension; E78.00 Pure hypercholesterolemia, unspecified; I25.5 Ischemic cardiomyopathy; E11.9 Type 2 diabetes mellitus without complications; G40.901 Epilepsy, unspecified, not intractable, with status epilepticus; Z95.1 Presence of aortocoronary bypass graft; Z87.891 Personal history of nicotine dependence; Z79.82 Long term (current) use of aspirin; Z79.84 Long term (current) use of oral hypoglycemic drugs; Z79.899 Other long term (current) drug therapy; Z88.2 Allergy status to sulfonamides; Z88.1 Allergy status to other antibiotic agents; Z91.040 Latex allergy status ==

== ENCOUNTER → 2021-02-06 | Outpatient (CLI) | payer OTHER | LOC: SJCVCIMAG 07:24 | PROVIDERS: ATTEND Internal Medicine Cardiovascular Disease | DX: I08.2 Rheumatic disorders of both aortic and tricuspid valves (principal); R94.31 Abnormal electrocardiogram [ECG] [EKG]; I25.810 Atherosclerosis of coronary artery bypass graft(s) without angina pectoris; E78.00 Pure hypercholesterolemia, unspecified; I25.5 Ischemic cardiomyopathy; G20 Parkinson's disease; E11.22 Type 2 diabetes mellitus with diabetic chronic kidney disease; I13.0 Hypertensive heart and chronic kidney disease with heart failure and stage 1 through stage 4 chronic kidney disease, or unspecified chronic kidney disease; I50.9 Heart failure, unspecified; N18.9 Chronic kidney disease, unspecified; Z90.49 Acquired absence of other specified parts of digestive tract; Z95.5 Presence of coronary angioplasty implant and graft; Z95.1 Presence of aortocoronary bypass graft; Z88.2 Allergy status to sulfonamides; Z88.8 Allergy status to other drugs, medicaments and biological substances; Z79.82 Long term (current) use of aspirin; Z79.84 Long term (current) use of oral hypoglycemic drugs; Z79.899 Other long term (current) drug therapy; Z87.891 Personal history of nicotine dependence; Z82.49 Family history of ischemic heart disease and other diseases of the circulatory system ==